=== PATIENT | male | born 1945 | race Two or more races ===

== ENCOUNTER → 2017-07-18 13:47 | Outpatient (CLI) | payer OTHER | END | disposition home or self-care (01) | LOC: LAB 13:47 | DX: R97.20 Elevated prostate specific antigen [PSA] (principal) ==

== ENCOUNTER 2017-08-02 07:18 | Outpatient (CLI) | payer OTHER | END 2017-08-02 07:23 | disposition home or self-care (01) | LOC: SONOGRAMA 07:18 | DX: R97.20 Elevated prostate specific antigen [PSA] (principal) ==